=== PATIENT | female | born 1970 | race Two or more races ===

== ENCOUNTER 2024-04-12 03:54 | Emergency (ER) | payer MEDICAID ==
[~2024-04-12] VITALS: Ht 167.6 cm; Wt 93.0 kg
[2024-04-12 06:49] LABS: Amphetamine Screen, Urine Neg (NEGATIVE); Barbiturate Scree,Urine Neg (NEGATIVE); Benzodiazephine Screen, Urine Neg (NEGATIVE); Cocaine Screen, Urine Neg (NEGATIVE); Opiate Scree,Urine Neg (NEGATIVE); Phencyclidine Screen, Urine Neg (NEGATIVE)
[2024-04-12 06:50] LABS: Cannabinoid Screen, Urine Neg (NEGATIVE)
[2024-04-12 06:56] LABS: Urine Bacteria FEW /hpf (None Seen); Urine Blood TRACE /uL (Negative); Urine Clarity Clear (Clear); Urine Color Light-Yellow (Yellow); Urine Mucus FEW (None Seen); Urine Protein, UAD Negative (Negative); Urine Specific Gravity 1.022 (1.001-1.035); Urine Urobilinogen Normal (Negative); Urine WBC 2 /hpf (0 - 5); Urine pH 5.5 (5.0-9.0)
[2024-04-12] MEDS ORDERED: CEPH250C PO (07:28)
[2024-04-12] MEDS ORDERED: IBU600T PO (07:28)
[2024-04-12] MEDS: IBUPROFEN 600 MG TAB PO ONE (07:43)
[2024-04-12 07:48] VITALS: BP 148/73; PULSE 60; RESP 22; O2SAT 99
[2024-04-12 07:58] VITALS: TEMP 97.9
== END 2024-04-12 07:59 | disposition home or self-care (01) ==
LOC: ER 03:54
DX: S39.012A Strain of muscle, fascia and tendon of lower back, initial encounter (principal); N39.0 Urinary tract infection, site not specified; Z79.899 Other long term (current) drug therapy; Y04.2XXA Assault by strike against or bumped into by another person, initial encounter; Y93.89 Activity, other specified; Y92.89 Other specified places as the place of occurrence of the external cause; Y99.8 Other external cause status
CPT/HCPCS: 80307; 81001